=== PATIENT | female | born 1995 | race Caucasian/White ===

== ENCOUNTER → 2016-09-15 | Outpatient (CLI) | payer OTHER, SELFPAY ==
--- NOTE | 2016-09-16 08:10 | RAD ---
EXAM DESCRIPTION: Neck,Soft Tissue CLINICAL HISTORY: 20 years Female, DYSPHAGIA COMPARISON: None. FINDINGS: Two views of the neck demonstrate reversal of cervical lordosis centered at the C5 level with no abnormal soft tissue swelling or mass identified. No significant degenerative changes are seen. No cervical ribs are noted. No soft tissue swelling or abnormality of the epiglottis is evident. Normal laryngeal calcification is evident. IMPRESSION: Reversal of normal lordosis suggesting the possibility of cervical spasm or strain, otherwise normal soft tissue views of the neck. Electronically signed by: Manav Costello MD 09/16/2016 8:08 AM CDT
--- NOTE | 2016-09-16 08:12 | US ---
EXAM DESCRIPTION: Soft Tissue,Head/Neck CLINICAL HISTORY: DYSPHAGIA COMPARISON: None Available. TECHNIQUE: Sonographic evaluation of the soft tissue planes of the anterior and lateral neck. FINDINGS: Soft tissue planes of the neck are normal in appearance with a normal vascular structures and a normal appearance of the sternocleidomastoid on each side. No cystic or solid soft tissue masses are noted. No abnormal adenopathy is seen. No shadowing or sonographically visible foreign body is evident. IMPRESSION: Normal examination. Electronically signed by: Manav Csotello MD 09/16/2016 8:10 AM CDT
--- NOTE | 2016-09-16 08:13 | US ---
EXAM DESCRIPTION: Thyroid CLINICAL HISTORY: 20 years Female, TROUBLE SWALLOWING COMPARISON: None. FINDINGS: The thyroid gland is small and normal in size with the right lobe measuring 4.4 x 1.4 x 1.4 cm and the left lobe 4.6 x 1.6 x 1.3 cm. Thyroid gland is homogeneous and echogenic with a normal echotexture throughout except for a small hypoechoic solid nodule at the junction of the upper pole of the right lobe with the isthmus measuring 7 x 7 x 7 mm. This finding is nonspecific but in this young female patient a follow-up examination in one year for reassessment is recommended. The isthmus is 2 mm in thickness. IMPRESSION: Normal size and appearance of the thyroid gland except for a 7 mm hypoechoic nodule at the junction of the isthmus with the right lobe near the upper pole. One year sonographic follow-up to reconfirm stability recommended. Electronically signed by: Manav Costello MD 09/16/2016 8:12 AM CDT
== END | disposition home or self-care (01) ==
LOC: US 11:24
PROVIDERS: ATTEND Nurse Practitioner Acute Care
DX: R13.0 Aphagia (principal); R13.10 Dysphagia, unspecified

== ENCOUNTER → 2016-09-17 | Outpatient (CLI) | payer SELFPAY ==
--- NOTE | 2016-09-17 13:38 | RAD ---
EXAM DESCRIPTION: UGI CLINICAL HISTORY: 20 years Female, APHAGIA COMPARISON: None. FINDINGS: Double contrast upper GI series shows unremarkable appearance of the stomach esophagus and duodenum. Patient has normal swallowing mechanism. There is no mucosal abnormality. 13 mm barium tablet passes through the esophagus without delay. 15 images acquired and saved in the patient's medical record. Fluoroscopy time less than one minute IMPRESSION: Normal double contrast upper GI Electronically signed by: Horace Bach MD 09/17/2016 1:36 PM CDT Workstation: [id number]
== END | disposition home or self-care (01) ==
LOC: RAD 10:12
PROVIDERS: ATTEND Family Medicine
DX: R13.10 Dysphagia, unspecified (principal)

== ENCOUNTER → 2016-10-02 | Outpatient (CLI) | payer OTHER | LOC: GMA 16:28 | PROVIDERS: ATTEND Nurse Practitioner Acute Care | DX: R76.0 Raised antibody titer (principal) ==